=== PATIENT | male | born 1975 | race Hispanic/Latino ===

== ENCOUNTER 2025-05-29 09:07 | Emergency (ER) | payer BC ==
[~2025-05-29] VITALS: Ht 185.4 cm; Wt 127.0 kg
--- NOTE | 2025-05-29 09:36 | ERN ---
General Chief Complaint: Shoulder Injury/Pain Stated Complaint: RT SHOULDER PAIN Time Seen by MD: 09:08 Source: patient History of Present Illness Initial Comments Patient is a 50-year-old male coming in with shoulder pain. Patient states that the shoulder pain has been ongoing for one week. Patient also states that the shoulder. It is exacerbated with movement Allergies: Coded Allergies: No Known Allergies (Unverified Allergy, Unknown, 05/29/25) Past Medical History Past Medical History: Hypertension Past Surgical History: Cholecystectomy Surgical History Other: ACL REPAIR ROS Dictation CONSTITUTIONAL: No chills, no fever, no weakness, no diaphoresis, no malaise. HEAD/FACE: No signs of trauma. EENT: No eye pain, no blurred vision, no tearing, no double vision, no ear pain, no ear discharge, no nose pain, no nasal congestion, no throat pain, no throat swelling, no mouth pain. RESPIRATORY: No cough, no orthopnea, no SOB, no stridor, no wheezing. CARDIOVASCULAR: No chest pain, no edema, no palpitations, no syncope. GASTROINTESTINAL/ABDOMINAL: No abdominal pain, no constipation, no diarrhea, no nausea, no vomiting. GENITOURINARY: No abnormal discharge, no dysuria, no frequent urination, no hematuria. No complaints of pain in the genitals. MUSCULOSKELETAL: No back pain, no gout, joint pain, joint swelling, muscle pain, no muscle stiffness, no neck pain. INTEGUMENTARY: No change in color, no change in hair/nails, no dryness, no lesion, no lumps, no rash. NEUROLOGICAL/PSYCH: No anxiety, not depressed, no emotional problem, no headache, no numbness, no pre-existing deficit, no history of seizures, no tremors, no weakness. HEMATOLOGIC/LYMPHATIC: Not anemic, no history of blood clots, no apparent bleeding, no bruising, glands not swollen. All Systems Negative, Except as Noted. Physical Exam Physical Exam Dictation VITAL SIGNS: Reviewed. GENERAL APPEARANCE: Alert, oriented x3, no acute distress, obese. HEAD AND FACE: Non-traumatic. EYES: PERRL, pink conjunctivas, eyelid no trauma, anterior chamber clear. EARS: Pinnas intact and no signs of trauma or erythema. Ear canals clear and no discharge. TMs no erythema. NOSE: No discharge, no bleeding. OROPHARYNX: Mouth normal, teeth no caries, tongue pink. Pharynx clear, no erythema. Tonsils no exudates, no abscesses noted. Mucous membrane moist. NECK: Supple, non-tender, no thyromegaly, no masses, no JVD, no bruits. BREAST: Deferred. CHEST: No tenderness, no crepitus, no paradoxical movement, no retractions. LUNGS: Clear, well-ventilated, symmetric, no rales, no wheezing, no rhonchi, no stridor, good breath sounds bilaterally. HEART: Regular rate, regular rhythm, no murmur, no gallops. VASCULAR: No peripheral edema. ABDOMEN: Soft, positive bowel sounds, nondistended, no guarding, nontender, no rebound, no masses no hepatomegaly, no splenomegaly, no Cardenas's sign, no herni as. RECTAL: Deferred. GENITAL: Deferred. NEUROLOGICAL: Normal speech, gross motor function intact, gross sensory function intact. MUSCULOSKELETAL: Neck nontender, full range of motion, back nontender, full range of motion. EXTREMITIES: Nontender, full range of motion. Right deltoid discomfort on palpation, pain on abduction SKIN: Color pink, dry, no turgor, no rash, no lacerations, no abrasions, no contusions. LYMPHATICS: Deferred. Results Laboratory and Microbiology Labs Reviewed?: Yes EKG/XRAY/US/CT/MRI X-RAY Comment X-ray right shoulder-NAD MDM MDM: Differential diagnosis: Frozen shoulder, bursitis, rotator cuff strain Rationale: Tests considered and ordered secondary to shared decision making include: Previous outside records reviewed: Old ER visits. Risk of complication and/or morbidity or mortality of patient management: None Medications-Per medication reconciliation Need for hospitalization: Patient does not meet criteria for hospitalization. Need for emergency major/minor surgery: No Patient is a 50-year-old gentleman coming in complaining of right shoulder pain x-ray did not disclose acute findings. Shoulder was placed on sling anti-inflammatories were given as well as antispasmodics. Patient will be discharged in stable condition with a diagnosis of rotator cuff strain. ED Course Orders Procedure Category Date Status Time Shoulder Comp 2+Vws Rt RAD 05/29/25 Taken 09:16 Orphenadrine Citrate PHA 05/29/25 Complete (Norflex) 09:30 Ketorolac PHA 05/29/25 Complete Tromethamine 30mg/Ml 09:30 Current Medications Medications (Trade) Dose Ordered Sig/Mike Route PRN Reason Start Time Stop Time Status Last Admin Dose Admin Ketorolac Tromethamine (toRADol) 30 mg ONCE ONCE IM 05/29/25 09:30 05/29/25 09:31 DC 05/29/25 09:53 Orphenadrine Citrate (Norflex) 60 mg ONCE ONCE IM 05/29/25 09:30 05/29/25 09:31 DC 05/29/25 09:52 Vital Signs Date Time Temp Pulse Resp B/P (MAP) Pulse Ox O2 Delivery O2 Flow Rate FiO2 05/29/25 09:07 97.9 71 16 130/86 98 Room Air 0 DX & DISP Disposition: Discharge Departure Impression: Primary Impression: Rotator cuff arthropathy Additional Impression: Rotator cuff (capsule) sprain Condition: Stable Scripts Methocarbamol (Robaxin) 750 Mg Tab 1 TAB PO BID for 7 Days, #14 TAB 0 Refills Prov: THANIA KELLOGG MD 05/29/25 Naproxen (Naproxen) 500 Mg Tablet 1 TAB PO BID for pain for 7 Days, #14 TAB 0 Refills Prov: THANIA KELLOGG MD 05/29/25 Additional Instructions: FOLLOW-UP WITH PRIMARY CARE PROVIDER IN 1 TO 2 DAYS. TAKE MEDICATIONS DIRECTED HERE IN THE EMERGENCY ROOM. OKAY TO CONTINUE HOME MEDICATIONS UNLESS OTHERWISE DISCUSSED DURING YOUR VISIT IN THE EMERGENCY ROOM TODAY. RETURN TO YOUR NEAREST EMERGENCY ROOM IF SYMPTOMS WORSEN OR IF THERE IS NO IMPROVEMENT. CALL 911 IF YOU NEED IMMEDIATE ASSISTANCE. TAKE TYLENOL [id number] NEEDED AND IF NO CONTRAINDICATIONS ARE PRESENT. INCREASE ORAL HYDRATION. A WOUND CULTURE OR URINE CULTURE WAS ORDERED HERE IN THE EMERGENCY ROOM DEPARTMENT PLEASE FOLLOW-UP WITH PRIMARY CARE PROVIDER AND ADVISE THEM TO GET REPORTS FROM OUR FACILITY. IF YOU HAD ANY BHUMIKA WRAP/SPLINTS THAT WERE APPLIED HERE, PLEASE DO NOT REMOVE THEM UNTIL YOU SEE YOUR PRIMARY CARE OR SPECIALTY. Referrals: Referrals: MARK YODER (PCP) Time of Disposition: 10:09 THANIA KELLOGG MD May 29, 2025 09:36
[2025-05-29] MEDS: ORPHENADRINE 60MG/2ML IM ONE (09:52)
[2025-05-29 10:07] VITALS: BP 124/87; PULSE 70; RESP 16; TEMP 97.9; O2SAT 98
[2025-05-29] MEDS ORDERED: NAPR-1194 PO (10:12)
[2025-05-29] MEDS ORDERED: METH-662 PO (10:12)
--- NOTE | 2025-05-29 10:24 | HMCIMG ---
EXAM: CR right Shoulder, 2 View. CLINICAL HISTORY: shoulder pain COMPARISON: None provided. FINDINGS: BONES: No acute fracture or aggressive appearing osseous lesion. JOINTS: No dislocation. The joint spaces are normal. Rotator cuff calcific tendinopathy that is evident by calcifications within the rotator interval. SOFT TISSUES: The soft tissues are unremarkable. IMPRESSION: 1. No acute findings. 2. Rotator cuff calcific tendinopathy. /Blair
== END 2025-05-29 10:17 | disposition home or self-care (01) ==
LOC: EDH 09:07
DX: S43.421A Sprain of right rotator cuff capsule, initial encounter (principal); M12.811 Other specific arthropathies, not elsewhere classified, right shoulder; I10 Essential (primary) hypertension; Z90.49 Acquired absence of other specified parts of digestive tract; X58.XXXA Exposure to other specified factors, initial encounter; Y93.89 Activity, other specified; Y92.89 Other specified places as the place of occurrence of the external cause; Y99.8 Other external cause status
CPT/HCPCS: 99284; 29105; 73030; 96372 ×2; J1885; J2360